=== PATIENT | female | born 1970 | race Caucasian/White ===

== ENCOUNTER 2016-09-29 19:34 | Emergency (ER) | payer OTHER ==
--- NOTE | 2016-09-29 20:19 | EDPHY ---
H & P Stated Complaint: 1st toe L foot injured Time Seen by Provider: 09/29/16 20:03 HPI/ROS: Chief Complaint: Left toe pain HPI: 46-year-old woman dropped a full bottle of vodka on her left toe. She had immediate pain over her distal great toe. Has had pain with ambulation. Pain seems to be getting better but is radiating up her foot. No numbness or weakness. No prior injuries. ROS: 10 point Review of Systems is negative except as noted in the HPI. Physical Exam: General: Awake, alert, no acute distress Left ankle: Nontender, full range of motion of pain Left foot: She has distant tenderness over her distal phalanx of her left great toe. Sensations intact. She has no other bony tenderness. No deformities. No lacerations. No subungual hematoma. Skin: No rash - Personal History LMP (Females 10-55): 22-28 Days Ago Current Tetanus/Diphtheria Vaccine: Yes - Medical/Surgical History Hx Asthma: Yes Hx Chronic Respiratory Disease: No Hx Diabetes: No Hx Cardiac Disease: No Hx Renal Disease: No Hx Cirrhosis: No Hx Alcoholism: No Hx HIV/AIDS: No Hx Splenectomy or Spleen Trauma: No Other PMH: PSHx: c section. PMHx: Katie-Garcia Syndrome, Reactive Airway Disease - Social History Smoking Status: Never smoked Constitutional: O2 Delivery Mode Room Air Allergies/Adverse Reactions: egg [eggs] Allergy (Verified 09/29/16 19:51) Home Medications: Medication Instructions Recorded NK [No Known Home Meds] 09/29/16 Departure - Departure Disposition: Home, Routine, Self-Care Clinical Impression: Toe fracture Condition: Good Instructions: Toe Fracture (ED) Additional Instructions: Tape your toe to the next toe for support. Wear supportive shoes. Follow up with your doctor in 2-3 weeks for re-evaluation. Return emergency depart for increasing pain, swelling, pain in your foot or ankle, or any other concerns. You may alternate ibuprofen with acetaminophen as needed for pain. Referrals: Rajwinder Zavaleta MD [Primary Care Provider] - As per Instructions
[2016-09-29 20:28] VITALS: BP 120/74; PULSE 73; RESP 20; TEMP 98.8; O2SAT 94
== END 2016-09-29 20:28 | disposition home or self-care (01) ==
DX: S92.425A Nondisplaced fracture of distal phalanx of left great toe, initial encounter for closed fracture (principal); J45.909 Unspecified asthma, uncomplicated; W20.8XXA Other cause of strike by thrown, projected or falling object, initial encounter

== ENCOUNTER → 2017-05-20 | Outpatient (CLI) | payer OTHER | LOC: FIMAGING 11:55 | PROVIDERS: ATTEND Internal Medicine | DX: R10.2 Pelvic and perineal pain (principal); R10.32 Left lower quadrant pain; N88.8 Other specified noninflammatory disorders of cervix uteri ==

== ENCOUNTER 2017-10-08 14:43 | Emergency (ER) | payer OTHER ==
[2017-10-08 14:48] VITALS: BP 114/72
--- NOTE | 2017-10-08 15:13 | EDPHY ---
H & P Time Seen by Provider: 10/08/17 15:00 HPI/ROS: CHIEF COMPLAINT: Rash HISTORY OF PRESENT ILLNESS: Happened 10 days ago after the patient was weeding , and then she chased her dog through some high foliage. Started with an HE weeping vesicular rash in her right arm, then moved to other places on her body. REVIEW OF SYSTEMS: No fever or chills and no angioedema PAST MEDICAL HISTORY: Katie Garcia and reactive airway disease Social history: Primary care Rajwinder Zavaleta General Appearance: Alert and conversant, cooperative. Patient has vesicular and indurated rash on the right distal forearm, left wrist , left lateral thigh, left lower abdomen and anterior pelvis. It is very itchy. No lymphangitis. Not warm to the touch. Emergency Department course/MDM: Presents with contact dermatitis likely from plant exposure 10 days ago. Prednisone discussed and consented. Doubt cellulitis. Smoking Status: Former smoker Constitutional: Initial Vital Signs Temperature (C) 36.8 C 10/08/17 14:44 Heart Rate 72 10/08/17 14:44 Respiratory Rate 16 10/08/17 14:44 Blood Pressure 114/72 10/08/17 14:44 O2 Sat (%) 98 10/08/17 14:44 O2 Delivery Mode Room Air Allergies/Adverse Reactions: egg [eggs] Allergy (Verified 10/08/17 14:44) Home Medications: Medication Instructions Recorded predniSONE [prednisone 20mg (RX)] 40 mg PO DAILY 7 Days tab 10/08/17 MDM/Departure - Depart Disposition: Home, Routine, Self-Care Clinical Impression: Contact dermatitis Qualifiers: Contact dermatitis type: unspecified Contact dermatitis trigger: unspecified trigger Qualified Code(s): L25.9 - Unspecified contact dermatitis, unspecified cause Condition: Good Instructions: Contact Dermatitis (ED) Prescriptions: predniSONE [prednisone 20mg (RX)] 40 mg PO DAILY 7 Days tab Referrals: Rajwinder Zavaleta MD [Primary Care Provider] - As per Instructions Stanley Ag MD [Medical Doctor] - As per Instructions MARIA ISABEL CLARK [Medical Doctor] - As per Instructions
== END 2017-10-08 15:20 | disposition home or self-care (01) ==
DX: L25.9 Unspecified contact dermatitis, unspecified cause (principal); J45.909 Unspecified asthma, uncomplicated; Z87.891 Personal history of nicotine dependence